=== PATIENT | male | born 1940 | race Caucasian/White ===

== ENCOUNTER 2019-02-08 12:09 | Inpatient (IN) | payer MEDICARE, OTHER ==
[~2019-02-08] VITALS: Ht 175.3 cm; Wt 78.5 kg
--- NOTE | 2019-02-08 12:22 | NUR ---
"RAJ FROM [facility] SENT BY DR PALACIO FOR SUPRAPUBIC CATH CHANGE/REPLACE" PT AAOX4, -SOB, NAD NOTED, PT TO BED 4, VSS, PENDING ER PROVIDER SHANIA
[2019-02-08] MEDS ORDERED: PIPERACILLIN /TAZOBACTAM 3.375 G in IV D5W 50 ML IV ONE (12:30)
[2019-02-08] MEDS ORDERED: IV NS 0.9% 500 ML BAG IV ONE (12:30)
[2019-02-08] MEDS ORDERED: VANCOMYCIN 1 GM in IV D5W 250 ML IV ONE (12:30)
[2019-02-08 12:49] LABS: BASOPHILS # (AUTO) 0.1 /CMM (0.0-0.2); BASOPHILS % (AUTO) 0.7 % (0.0-2.0); EOSINOPHILS % (AUTO) 4.1 % (0.0-6.0); HEMATOCRIT 41 % (39-51); HEMOGLOBIN 14.1 g/dL (13.5-17.5); LYMPHOCYTES # (AUTO) 1.7 /CMM (0.8-4.8); LYMPHOCYTES % (AUTO) 21.8 % (20.0-44.0); MEAN CORPUSCULAR HGB CONC 35 g/dl (31.0-36.0); MEAN CORPUSCULAR VOLUME 94 fL (80-96); MONOCYTES # (AUTO) 0.6 /CMM (0.1-1.30); MONOCYTES % (AUTO) 7.7 % (2.0-12.0); NEUTROPHILS # (AUTO) 5.2 /CMM (1.8-8.9); NEUTROPHILS % (AUTO) 65.7 % (43.0-81.0); PLATELET COUNT (AUTO) 201 /CMM (150-450); WHITE BLOOD COUNT (AUTO) 7.9 K/uL (4.3-11.0)
[2019-02-08 12:57] LABS: CARBON DIOXIDE 32 mmol/L (21-32); CHLORIDE 99 mmol/L (98-107); CREATININE 0.8 mg/dL (0.6-1.3); GLUCOSE 93 mg/dL (74-106); POTASSIUM 4.6 mmol/L (3.5-5.1); SODIUM SERUM 134 mmol/L (136-145); UREA NITROGEN, BLOOD 17 mg/dL (7-18)
[2019-02-08 13:03] LABS: ALANINE AMINOTRANSFERASE 31 U/L (12-78); ALBUMIN 3.5 g/dL (3.4-5.0); ALKALINE PHOSPHATASE 114 U/L (46-116); ASPARTATE AMINOTRANSFERASE 22 U/L (15-37); BILIRUBIN,DIRECT 0.2 mg/dL (0.0-0.2); BILIRUBIN,TOTAL 0.5 mg/dL (0.2-1.0); TOTAL PROTEIN, SERUM 7.8 g/dL (6.4-8.2)
[2019-02-08] MEDS ORDERED: MELA3CAP2 PO (13:25)
[2019-02-08] MEDS ORDERED: ACET-73 PO (13:25)
[2019-02-08] MEDS ORDERED: TRAZ-182 PO (13:25)
[2019-02-08] MEDS ORDERED: GABA600T12 PO (13:25)
[2019-02-08] MEDS ORDERED: CLON0.5T PO (13:25)
[2019-02-08] MEDS ORDERED: TYL2T PO (13:25)
[2019-02-08] MEDS ORDERED: DOCU-141 PO (13:25)
[2019-02-08] MEDS ORDERED: LACT-239 PO (13:25)
[2019-02-08] MEDS ORDERED: SENN-18 PO (13:25)
[2019-02-08] MEDS ORDERED: ASCO500T9 PO (13:25)
[2019-02-08] MEDS ORDERED: LEVO25TA7 PO (13:25)
[2019-02-08] MEDS ORDERED: MULT-661 PO (13:25)
[2019-02-08] MEDS ORDERED: CLON0.1T PO (13:25)
[2019-02-08] MEDS ORDERED: FAMO40TA7 PO (13:25)
[2019-02-08] MEDS ORDERED: POLY15DR31 OP (13:25)
--- NOTE | 2019-02-08 14:51 | NUR ---
REPORT GIVEN TO PAULINE BASSETT FOR MAYKEL PT WILL BE TRANSPORTED TO 3RD FLOOR
[2019-02-08 15:20] VITALS: BP 118/72
--- NOTE | 2019-02-08 15:20 | NUR ---
MS RN ADMITTING NOTES RECEIVED PT ALERT AND ORIENTED X4.VERBALLY RESPONSIVE. DENIES ANY PAIN OR DISTRESS.ON BED REST.ABLE TO MOVE/TURN BUE/BLE WNL IN BED ONLY.RESPIRATIONS NON LABORED IN ROOM AIR.WOUND C/S G/S OF ABDOMINAL INNER WALL SPECIMEN SENT TO LAB.WITH RT LOWER BUTTOCK WOUND,LT HEEL (UNOPEN DRY BLISTER),SACROCOCCYX AND HANSEL BUTTOCK REDNESS,ABD WALL SUPRAPUBIC SITE OPEN WOUND AND RT MOYA SCABS.SEEN BY DR MAYS WITH ADMITTING ORDERS.AWAITING UROLOGY CONSULT FROM DR ANDERSON.CALL LIGHT PLACED WITHIN REACH.
[2019-02-08 16:00] VITALS: BP 118/72
[2019-02-08] MEDS ORDERED: SENNOSIDES 8.6 MG TABLET PO PRN (16:00)
[2019-02-08] MEDS ORDERED: TRAZODONE 50 MG TABLET PO PRN (16:00)
[2019-02-08] MEDS ORDERED: ACETAMINOPHEN 325 MG TABLET PO PRN ×2 (16:00→16:30)
[2019-02-08] MEDS ORDERED: CLONIDINE HCL 0.1 MG TABLET PO PRN (16:00)
[2019-02-08] MEDS ORDERED: FEE PK DOSING 1 MIN EA MC ONE (16:28)
[2019-02-08] MEDS ORDERED: POLYVINYL ALCOHOL/POVIDONE 0.4 ML DROPERETTE EACHEYE PRN (16:30)
[2019-02-08] MEDS ORDERED: MAG HYDROX/AL HYDROX/SIMETH 30 ML UDC PO PRN (16:30)
[2019-02-08] MEDS ORDERED: HYDROCODONE/APAP 5/325MG 1 EACH TABLET PO PRN (16:30)
[2019-02-08] MEDS ORDERED: Z GUARD REMEDY 2 OZ OINT TP PRN (16:30)
[2019-02-08] MEDS ORDERED: MAGNESIUM HYDROXIDE 30 ML UDC PO PRN (16:30)
[2019-02-08] MEDS ORDERED: ONDANSETRON HCL/PF 4 MG/2 ML VIAL IVP PRN (16:30)
[2019-02-08] MEDS ORDERED: ZOLPIDEM TARTRATE 5 MG TABLET PO PRN (16:30)
[2019-02-08] MEDS: DOCUSATE SODIUM 100 MG CAPSULE PO SCH (17:00)
[2019-02-08] MEDS: ZOSYN IVPB 3.375 G in IV D5W 50ml IV SCH ×2 (19:09→23:43)
--- NOTE | 2019-02-08 19:42 | NUR ---
MS RN RECEIVE PT IN BED A/O X 3, RESPIRATIONS EVEN AND UNLABORED, STABLE SAFETY MEASURES IN PLACE. WILL CONTINUE TO MONITOR.
[2019-02-08 20:00] VITALS: BP 114/67
[2019-02-08 20:58] VITALS: BP 114/67
[2019-02-08] MEDS: GABAPENTIN 300 MG CAPSULE PO SCH (21:21)
[2019-02-08] MEDS: clonazePAM 0.5 MG TABLET PO SCH (21:21)
[2019-02-08] MEDS ORDERED: Medication Not On Formulary EA (Melatonin 3 MG) PO SCH (22:00)
--- NOTE | 2019-02-08 23:10 | NUR ---
S/B UROLOGIST INSERTED SUPRAPUBIC CATH STERILE TECHNIQUE FR 20
[2019-02-09] MEDS ORDERED: VANCOMYCIN 0.75 GM in IV D5W 250 ML IV SCH (01:00)
[2019-02-09] MEDS: clonazePAM 0.5 MG TABLET PO SCH ×3 (04:58→21:01)
[2019-02-09] MEDS: ZOSYN IVPB 3.375 G in IV D5W 50ml IV SCH ×3 (05:00→18:11)
--- NOTE | 2019-02-09 06:30 | NUR ---
MS RN ASLEEP AND EASILY AWAKEN. STABLE. NO S/S OF DISTRESS. KEPT CLEAN AND DRY AND COMFORTABLE. NEEDS ATTENDED AND ANTICIPATED. NURSING CARE RENDERED, REPOSITION Q2HR. OFFLOAD HEELS AND ELBOWS AT ALL TIMES. NO C/O OF PAIN. SAFETY MEASURES AT ALL TIMES. ENDORSE TO THE NEXT SHIFT.
[2019-02-09 06:31] LABS: BASOPHILS % (AUTO) 0.3 % (0.0-2.0); EOSINOPHILS % (AUTO) 2.2 % (0.0-6.0); HEMATOCRIT 37 % (39-51); HEMOGLOBIN 12.8 g/dL (13.5-17.5); LYMPHOCYTES # (AUTO) 1.9 /CMM (0.8-4.8); LYMPHOCYTES % (AUTO) 19.7 % (20.0-44.0); MEAN CORPUSCULAR HGB CONC 35 g/dl (31.0-36.0); MEAN CORPUSCULAR VOLUME 93 fL (80-96); MONOCYTES # (AUTO) 0.8 /CMM (0.1-1.30); NEUTROPHILS # (AUTO) 6.8 /CMM (1.8-8.9); NEUTROPHILS % (AUTO) 69.8 % (43.0-81.0); PLATELET COUNT (AUTO) 183 /CMM (150-450); RED BLOOD CELL COUNT(AUTO) 3.93 MIL/uL (4.5-6.0); WHITE BLOOD COUNT (AUTO) 9.8 K/uL (4.3-11.0)
[2019-02-09 07:06] LABS: THYROID STIMULATING HORMONE 2.006 uIU/mL (0.358-3.74)
[2019-02-09 07:17] LABS: CALCIUM, SERUM 8.4 mg/dL (8.5-10.1); CARBON DIOXIDE 26 mmol/L (21-32); CHLORIDE 99 mmol/L (98-107); CREATININE 0.9 mg/dL (0.6-1.3); GLUCOSE 102 mg/dL (74-106); MAGNESIUM 1.9 mg/dL (1.8-2.4); PHOSPHORUS 3.7 mg/dL (2.5-4.9); POTASSIUM 4.1 mmol/L (3.5-5.1); SODIUM SERUM 133 mmol/L (136-145); UREA NITROGEN, BLOOD 14 mg/dL (7-18)
[2019-02-09 08:00] VITALS: BP 108/71
--- NOTE | 2019-02-09 08:00 | NUR ---
m/s janitorial assistant: initial assessment received pt in bed awake, a/ox3-4. s/p suprapubic cath insertion with clear yellow urine output. no c/o pain or any discomfort. instructed to call for assistance. no distress noted. will monitor.
[2019-02-09] MEDS: ASCORBIC ACID 500 MG TABLET PO SCH (08:19)
[2019-02-09] MEDS: FAMOTIDINE (20 MG) 20 MG TABLET PO SCH (08:19)
[2019-02-09] MEDS: MULTIVIT W/MINERALS 1 TAB TABLET PO SCH (08:19)
[2019-02-09] MEDS: DOCUSATE SODIUM 100 MG CAPSULE PO SCH ×2 (08:22→16:20)
[2019-02-09] MEDS: LEVOTHYROXINE SODIUM 25 MCG TABLET PO SCH (08:22)
[2019-02-09] MEDS: ENSURE CLEAR 237 ML LIQUID (MIX BERRY) PO SCH (08:53)
--- NOTE | 2019-02-09 10:00 | NUR ---
WOUND CARE CONSULT:SEEN PATIENT AT BEDSIDE, PATIENT PRESENTS WITH RT AND LT BUTTOCKS WITH REDNESS AND RT BUTTOCK PRESSURE ULCER STAGE 2, RT , LT TOES WITH SCABS WITH REDNESS ,RT HEEL DTI\CLOSED BLISTER, LT ANKLE SCAB ,LOWER ABDOMEN S\P SUPRAPUBIC CATH PLACEMENT, PRESENT ON ADMISSION,RECOMMENDATION MADE FOR SKIN PROTECTION, DISCUSSED WITH NURSING STAFF , IN AGREEMENT WITH PLAN OF CARE CURRENT CORRY SCORE IS 15, FOR S\P SUPRAPUBIC CATH PLACEMENT DIFER TO PRIMARY CARE DOCTOR ,AND AGREE WITH CURRENT TREATMENT, ISOFLEX YORDY BED IN PLACE, TURN REPOSITION , HEELS FLOATED, WILL SEE PRN Addendum: 02/09/19 at 1137 by KATHERINE BOBBY RN Amended: Links added.
--- NOTE | 2019-02-09 12:38 | NUR ---
m/s bull gang worker: notes dr. delaney notified re: blood culture result (gram positive cocci) with new order to repeat blood cultures x2, and id consult. order read back and carried out. pmd will call tony (id) as stated.
[2019-02-09] MEDS: HYDROGEL DRESSING 90 GM TUBE TP SCH (13:57)
--- NOTE | 2019-02-09 14:00 | NUR ---
m/s wire spiral binder: notes resting comfortable in bed. pt wants to go today. awaiting order. case management to make arrangement. pt was evaluated earlier by [facility] personnel. instructed to call for assistance. will continue to monitor.
--- NOTE | 2019-02-09 15:00 | NUR ---
m/s explosive operator: notes dr. delaney notified and informed her that we have a bed at [facility], but wants to keep pt due to positive blood culture result. pt made aware and verbalized understanding.
[2019-02-09] MEDS: VANCOMYCIN 0.75 GM in IV D5W 250 ML IV SCH ×2 (15:05→22:04)
[2019-02-09 15:40] VITALS: BP 128/73
[2019-02-09] MEDS: LACTOBACILLUS RHAMNOSUS GG 1 EACH CAP.SPRINK PO SCH (16:20)
--- NOTE | 2019-02-09 17:00 | NUR ---
m/s cargo vessel stewardess: notes dinner served. hob elevated. call light within reach.
--- NOTE | 2019-02-09 19:15 | NUR ---
m/s antisqueak chalker: notes report given to bernardino (rn) for continuity of care.
--- NOTE | 2019-02-09 19:20 | NUR ---
rn initial notes: received report from valerie vega. pt in bed, awake, a/o x3 on ra respirations even and unlabored. pt has iv access on righ ac g 20, patent and flushing well, on hl. however pt complaining that it's hurting and requesting for new reinsertion. discussed plan of care to pt. pt s/p suprapubic cath reinsertion on 02/[address] bailey, draining to gravity. cath site noted to be red, with minimal drainage. id came to see and prescribed with neomycin ointment, awaiting for pharm to deliver the medication. safety precautions for fall initiated, call light in reach, will continue monitoring pt.
[2019-02-09 20:00] VITALS: BP 134/69
--- NOTE | 2019-02-09 20:15 | NUR ---
rn notes: reinserted new iv access on left fa using g 22 with good blood return noted, transparent dressing applied, with proper labels attached.
[2019-02-09] MEDS: NEOMY SULF/BACITRAC ZN/POLY 15 GM TUBE TP SCH (21:01)
[2019-02-09 22:00] VITALS: BP 119/67
--- NOTE | 2019-02-09 22:00 | NUR ---
rn notes: pt refused to be reposition at this time. education provided to pt.
[2019-02-09] MEDS: GABAPENTIN 300 MG CAPSULE PO SCH (22:02)
--- NOTE | 2019-02-10 | NUR ---
rn notes: pt refused to be reposition at this time. informed pt he's been laying on his back since 0800pm, pt refused, stated he's comfortable on his back, and he will call for help if he wants to be repositioned. education provided to pt regarding pressure ulcer development
--- NOTE | 2019-02-10 02:00 | NUR ---
RN NOTES: OFFERED TO BE REPOSITION BUT PT REFUSED, STATED HE WOULD LIKE TO SLEEP, AND HE WILL CALL WHENEVER FEEL THE NEED TO BE REPOSITION. EDUCATION PROVIDED TO PT RISK FOR WORSENING HIS SACRAL WOUND.
--- NOTE | 2019-02-10 04:00 | NUR ---
RN NOTES: OFFERED TO BE REPOSITION, PT REFUSED STATED HE DOESN'T WANT TO DO IT NOW, OFFERED FOR AM CARE/BED BATH AND WOUND CARE TREATMENT, PT STATED HE DOESN'T WANT ALL THOSE HARD WORK NOW AND WILL JUST DO IT AFTER BREAKFAST. HE ALSO ADDED HE WILL JUST BE MESSY AFTER BREAKFAST. WITNESSED BY WESLEY DESAI.
[2019-02-10] MEDS: VANCOMYCIN 0.75 GM in IV D5W 250 ML IV SCH ×3 (05:05→21:08)
[2019-02-10] MEDS: clonazePAM 0.5 MG TABLET PO SCH ×3 (05:05→20:25)
--- NOTE | 2019-02-10 05:13 | NUR ---
rn notes: offered am care, bed bath oral care and wound care treatment at this time, but pt refused, stated "why worry about it now?i will be all messy by the time i eat breakfast. i will request fo bath after breakfast." as pt verbalized. hector palafox at bed side , witnessed the conversation. offered for at least linen change but pt refused also. education provided to pt regarding importance of good hygiene.
--- NOTE | 2019-02-10 06:49 | NUR ---
rn closing notes: pt in bed, remains a/o x3, on ra respirations even and unlabored. pt continues to refused repositioning, refused bed bath and linen change despite providing education. ble kept offloaded on pillows. iv access remains patent and flushing well, on hl. no s/s of iv infiltration noted. suprapubic catheter remains in placed, bag emptied by bee raiser, cath site remains with erythema, ointment applied as ordered by ID. vs remains stable, needs attended. . safety precautions for fall remains engaged, call light in reach, will endorse to day rn for continuity of care.
[2019-02-10 06:57] LABS: BASOPHILS % (AUTO) 0.5 % (0.0-2.0); EOSINOPHILS % (AUTO) 6.2 % (0.0-6.0); HEMATOCRIT 36 % (39-51); HEMOGLOBIN 12.4 g/dL (13.5-17.5); LYMPHOCYTES # (AUTO) 1.6 /CMM (0.8-4.8); LYMPHOCYTES % (AUTO) 23.9 % (20.0-44.0); MEAN CORPUSCULAR HGB CONC 35 g/dl (31.0-36.0); MEAN CORPUSCULAR VOLUME 93 fL (80-96); MONOCYTES # (AUTO) 0.6 /CMM (0.1-1.30); MONOCYTES % (AUTO) 8.9 % (2.0-12.0); NEUTROPHILS # (AUTO) 4.1 /CMM (1.8-8.9); NEUTROPHILS % (AUTO) 60.5 % (43.0-81.0); PLATELET COUNT (AUTO) 168 /CMM (150-450); RED BLOOD CELL COUNT(AUTO) 3.83 MIL/uL (4.5-6.0); WHITE BLOOD COUNT (AUTO) 6.8 K/uL (4.3-11.0)
[2019-02-10 07:06] LABS: CALCIUM, SERUM 8.3 mg/dL (8.5-10.1); CARBON DIOXIDE 27 mmol/L (21-32); CHLORIDE 100 mmol/L (98-107); CREATININE 0.8 mg/dL (0.6-1.3); GLUCOSE 137 mg/dL (74-106); PHOSPHORUS 3.4 mg/dL (2.5-4.9); POTASSIUM 3.9 mmol/L (3.5-5.1); SODIUM SERUM 134 mmol/L (136-145); UREA NITROGEN, BLOOD 12 mg/dL (7-18)
--- NOTE | 2019-02-10 07:45 | NUR ---
MS RN OPENING NOTE PATIENT IN BED RESTING COMFORTABLY. PATIENT IN NO ACUTE DISTRESS. PATIENT BREATHING IS EVEN AND UNLABORED. NO SOB NOTED. PATIENT SUPRAPUBIC CATHETER IN PLACE AND INTACT. SAFETY PRECAUTIONS IN PLACE. PATIENT VERBALIZES NEEDS AND CONCERNS. NEEDS AND CONCERNS ADDRESSED. SAFETY PRECAUTIONS IN PLACE. PATIENT BED IS LOCKED AND IN LOWEST POSITION. CALL LIGHT WITHIN REACH. WILL CONTINUE TO MONITOR.
[2019-02-10 08:00] VITALS: BP 116/73
[2019-02-10] MEDS: ENSURE CLEAR 237 ML LIQUID (MIX BERRY) PO SCH (08:49)
[2019-02-10] MEDS: MULTIVIT W/MINERALS 1 TAB TABLET PO SCH (08:50)
[2019-02-10] MEDS: ASCORBIC ACID 500 MG TABLET PO SCH (08:50)
[2019-02-10] MEDS: LACTOBACILLUS RHAMNOSUS GG 1 EACH CAP.SPRINK PO SCH ×2 (08:50→17:10)
[2019-02-10] MEDS: FAMOTIDINE (20 MG) 20 MG TABLET PO SCH (08:50)
[2019-02-10] MEDS: LEVOTHYROXINE SODIUM 25 MCG TABLET PO SCH ×2 (08:50→08:54)
[2019-02-10] MEDS: NEOMY SULF/BACITRAC ZN/POLY 15 GM TUBE TP SCH ×3 (08:51→17:11)
[2019-02-10] MEDS: HYDROGEL DRESSING 90 GM TUBE TP SCH (08:51)
[2019-02-10] MEDS: DOCUSATE SODIUM 100 MG CAPSULE PO SCH ×2 (08:51→17:00)
[2019-02-10 16:00] VITALS: BP 106/59
--- NOTE | 2019-02-10 18:48 | NUR ---
MS RN NOTE PATIENT RESTING COMFORTABLY IN BED. PATIENT IN NO ACUTE DISTRESS. NO SOB NOTED. PATIENT BREATHING IS EVEN AND UNLABORED. PATIENT STATES NO PAIN AT THIS TIME. PATIENT ALLOWED FOR WOUND CARE TO BE PROVIDED. PROVIDED WOUND CARE ORDERED. PATIENT KEPT CLEAN AND DRY THROUGHOUT SHIFT. PATIENT OFFLOADED EXTREMITIES ON PILLOW MUCH PATIENT ALLOWED. AT TIMES REFUSED TO HAVE EXTREMITIES OFFLOADED WITH PILLOWS AND REFUSED AT TIMES TO BE REPOSITIONED. PATIENT STATES " I AM COMFORTABLE THE WAY IM RESTING NOW, NO NEED TO REPOSITION ME RIGHT NOW MAYBE LATER", WHEN REFUSING TO BE TURNED. SUPRAPUBIC CATHETER IN PLACE AND PATENT. PATIENT BED IS LOCKED AND IN LOWEST POSITION. CALL LIGHT WITHIN REACH. WILL ENDORSE CARE TO PM SHIFT FOR MAYKEL. Addendum: 02/10/19 at 1923 by DARRELL ORELLANA RN MS RN CLOSING NOTE PATIENT RESTING COMFORTABLY IN BED. PATIENT IN NO ACUTE DISTRESS. NO SOB NOTED. PATIENT BREATHING IS EVEN AND UNLABORED. PATIENT STATES NO PAIN AT THIS TIME. PATIENT ALLOWED FOR WOUND CARE TO BE PROVIDED. PROVIDED WOUND CARE ORDERED. PATIENT KEPT CLEAN AND DRY THROUGHOUT SHIFT. PATIENT OFFLOADED EXTREMITIES ON PILLOW MUCH PATIENT ALLOWED. AT TIMES REFUSED TO HAVE EXTREMITIES OFFLOADED WITH PILLOWS AND REFUSED AT TIMES TO BE REPOSITIONED. PATIENT STATES " I AM COMFORTABLE THE WAY IM RESTING NOW, NO NEED TO REPOSITION ME RIGHT NOW MAYBE LATER", WHEN REFUSING TO BE TURNED. SUPRAPUBIC CATHETER IN PLACE AND PATENT. PATIENT BED IS LOCKED AND IN LOWEST POSITION. CALL LIGHT WITHIN REACH. WILL ENDORSE CARE TO PM SHIFT FOR MAYKEL.
--- NOTE | 2019-02-10 19:15 | NUR ---
RN INITIAL NOTES: RECEIVED REPORT FROM DARRELL BASSETT. PT IN BED, AWAKE, WATCHING TV. DENIES ANY PAIN OR DISCOMFORT AT THIS TIME. RESPIRATIONS EVEN AND UNLABORED. IV ACCESS PATENT AND FLUSHING WELL, ON HL. PT HAD WOUND CARE TX, BED BATH AND LINEN CHANGE THIS AFTERNOON ACCDG TO REPORT FROM DAY RN. DISCUSSED PLAN OF CARE TO PT. BLE OFFLOADED ON PILLOWS. SAFETY PRECAUTIONS FOR FALL INITIATED, CALL LIGHT IN REACH, WILL CONTINUE MONITORING PT.
[2019-02-10 20:00] VITALS: BP 127/72
--- NOTE | 2019-02-10 20:30 | NUR ---
RN NOTES: PT AGREE FOR BED BATH AND WOUND CARE TREATMENT AT THIS TIME.
[2019-02-10] MEDS: GABAPENTIN 300 MG CAPSULE PO SCH (21:08)
[2019-02-10 22:00] VITALS: BP 108/77
--- NOTE | 2019-02-11 02:09 | NUR ---
rn notes: pt refused to be reposition at this time, education provided to pt.
[2019-02-11] MEDS: clonazePAM 0.5 MG TABLET PO SCH ×2 (05:09→13:42)
--- NOTE | 2019-02-11 05:09 | NUR ---
rn notes: lab came to draw for real maynard
--- NOTE | 2019-02-11 06:09 | NUR ---
rn notes: unable to admin schedule vanco iv, still waiting for vanco trough result
[2019-02-11 06:10] LABS: BASOPHILS % (AUTO) 0.7 % (0.0-2.0); EOSINOPHILS % (AUTO) 4.7 % (0.0-6.0); HEMATOCRIT 38 % (39-51); HEMOGLOBIN 13.2 g/dL (13.5-17.5); LYMPHOCYTES # (AUTO) 1.6 /CMM (0.8-4.8); LYMPHOCYTES % (AUTO) 22.4 % (20.0-44.0); MEAN CORPUSCULAR HGB CONC 34 g/dl (31.0-36.0); MEAN CORPUSCULAR VOLUME 94 fL (80-96); MONOCYTES # (AUTO) 0.6 /CMM (0.1-1.30); MONOCYTES % (AUTO) 8.2 % (2.0-12.0); NEUTROPHILS # (AUTO) 4.6 /CMM (1.8-8.9); PLATELET COUNT (AUTO) 183 /CMM (150-450); RED BLOOD CELL COUNT(AUTO) 4.09 MIL/uL (4.5-6.0); WHITE BLOOD COUNT (AUTO) 7.2 K/uL (4.3-11.0)
--- NOTE | 2019-02-11 06:25 | NUR ---
rn notes: still waiting for van co trough result
[2019-02-11 06:33] LABS: CALCIUM, SERUM 8.6 mg/dL (8.5-10.1); CARBON DIOXIDE 25 mmol/L (21-32); CHLORIDE 98 mmol/L (98-107); CREATININE 0.8 mg/dL (0.6-1.3); GLUCOSE 92 mg/dL (74-106); MAGNESIUM 1.9 mg/dL (1.8-2.4); PHOSPHORUS 3.6 mg/dL (2.5-4.9); POTASSIUM 4.1 mmol/L (3.5-5.1); SODIUM SERUM 132 mmol/L (136-145); UREA NITROGEN, BLOOD 12 mg/dL (7-18)
[2019-02-11] MEDS: VANCOMYCIN 0.75 GM in IV D5W 250 ML IV SCH (06:40)
--- NOTE | 2019-02-11 06:43 | NUR ---
RN CLOSING NOTES: PT IN BED, AWAKE, DENIES ANY PAIN OR DISCOMFORT AT THIS TIME. IV ACCESS REMAINS PATENT AND FLUSHING WELL, ON HL. SUPRAPUBIC CATHETER REMAINS IN PLACED, DRAINING TO GRAVITY. BLE KEPT OFFLOADED ON PILLOWS. AWAITING FINAL RESULT OF BLOOD CULTURES. VS REMAINS STABLE, NEEDS ATTENDED. SAFETY PRECAUTIONS FOR FALL REMAINS ENGAGED, CALL LIGHT IN REACH, WILL ENDORSE TO DAY RN FOR CONTINUITY OF CARE.
--- NOTE | 2019-02-11 07:34 | NUR ---
MS RN OPENING NOTE RECEIVED PATIENT IN BED SLEEPING COMFORTABLY. PATIENT IN NO ACUTE DISTRESS. NO SOB NOTED. PATIENT BREATHING IS EVEN AND UNLABORED. PATIENT SUPRAPUBIC CATHETER IN PLACE AND INTACT. PATIENT IV INTACT. PATIENT BED IS LOCKED AND IN LOWEST POSITION. CALL LIGHT WITHIN REACH. WILL CONTINUE TO MONITOR.
[2019-02-11 08:00] VITALS: BP 114/72
[2019-02-11] MEDS: DOCUSATE SODIUM 100 MG CAPSULE PO SCH (09:00)
[2019-02-11] MEDS: LACTOBACILLUS RHAMNOSUS GG 1 EACH CAP.SPRINK PO SCH (09:18)
[2019-02-11] MEDS: ENSURE CLEAR 237 ML LIQUID (MIX BERRY) PO SCH (09:18)
[2019-02-11] MEDS: FAMOTIDINE (20 MG) 20 MG TABLET PO SCH (09:19)
[2019-02-11] MEDS: ASCORBIC ACID 500 MG TABLET PO SCH (09:19)
[2019-02-11] MEDS: MULTIVIT W/MINERALS 1 TAB TABLET PO SCH (09:19)
[2019-02-11] MEDS: NEOMY SULF/BACITRAC ZN/POLY 15 GM TUBE TP SCH ×2 (09:20→13:44)
[2019-02-11] MEDS: HYDROGEL DRESSING 90 GM TUBE TP SCH (09:20)
[2019-02-11] MEDS ORDERED: DOXY100C2 PO (13:42)
[2019-02-11 16:00] VITALS: BP 124/75
--- NOTE | 2019-02-11 17:00 | NUR ---
MS TUMBLER DYEING MACHINE OPERATOR NOTE PATIENT MEDICALLY STABLE AND READY FOR DISCHARGE. PATIENT IN NO ACUTE DISTRESS. NO SOB NOTED. PATIENT BREATHING IS EVEN AND UNLABORED. PATIENT IS BREATHING ON ROOM AIR SATURATING >95% SPO2. PATIENT VITAL SIGNS WNL. PATIENT WAS KEPT CLEAN AND DRY DURING MY SHIFT. PATIENT ALLOWED FOR WOUND CARE TO BE PROVIDED. PATIENT EXTREMITIES WERE OFFLOADED ON PILLOWS AND REPOSITIONED MUCH PATIENT WOULD ALLOW. PATIENT IV REMOVED, NO REDNESS AFTER REMOVAL. PATIENT ID BAND REMOVED. PATIENT SKIN WAS ASSESSED. NO NEW SKIN BREAKDOWN NOTED. PATIENT BELONGINGS LIST SIGNED AND IN CHART. PATIENT GOING BACK TO [facility]. REPORT GIVEN TO RADHA BASSETT. DC INSTRUCTIONS PROVIDED. PATIENT VERBALIZED UNDERSTANDING OF DC INSTRUCTIONS. ALL NURSING NEEDS MET. PATIENT LEFT BY JERRICA, THROUGH AMBULANCE BACK TO [facility]. AWARE OF DISCHARGE. Addendum: 02/11/19 at 1754 by DARRELL ORELLANA RN MS TUMBLER DYEING MACHINE OPERATOR NOTE PATIENT MEDICALLY STABLE AND READY FOR DISCHARGE. PATIENT IN NO ACUTE DISTRESS. NO SOB NOTED. PATIENT BREATHING IS EVEN AND UNLABORED. PATIENT IS BREATHING ON ROOM AIR SATURATING >95% SPO2. PATIENT VITAL SIGNS WNL. PATIENT WAS KEPT CLEAN AND DRY DURING MY SHIFT. PATIENT ALLOWED FOR WOUND CARE TO BE PROVIDED. PATIENT EXTREMITIES WERE OFFLOADED ON PILLOWS AND REPOSITIONED MUCH PATIENT WOULD ALLOW. PATIENT IV REMOVED, NO REDNESS AFTER REMOVAL. PATIENT ID BAND REMOVED. PATIENT SKIN WAS ASSESSED. NO NEW SKIN BREAKDOWN NOTED. SUPRAPUBIC CATHETER INTACT AND PATENT. PATIENT BELONGINGS LIST SIGNED AND IN CHART. PATIENT GOING BACK TO [facility]. REPORT GIVEN TO RADHA BASSETT. DC INSTRUCTIONS PROVIDED. PATIENT VERBALIZED UNDERSTANDING OF DC INSTRUCTIONS. ALL NURSING NEEDS MET. PATIENT LEFT BY JERRICA, THROUGH AMBULANCE BACK TO [facility]. AWARE OF DISCHARGE.
[2019-02-11] MEDS ORDERED: VANCOMYCIN 0.75 GM in IV D5W 250 ML IV SCH (18:00)
== END 2019-02-11 17:00 | DRG 699 ==
LOC: ER 12:13 → MED 14:56
PROVIDERS: ADMIT Student in an Organized Health Care Education/Training Program; ATTEND Student in an Organized Health Care Education/Training Program
DX: T83.518A Infection and inflammatory reaction due to other urinary catheter, initial encounter (principal); L03.319 Cellulitis of trunk, unspecified; E87.1 Hypo-osmolality and hyponatremia; L97.429 Non-pressure chronic ulcer of left heel and midfoot with unspecified severity; L97.419 Non-pressure chronic ulcer of right heel and midfoot with unspecified severity; R78.81 Bacteremia; L03.311 Cellulitis of abdominal wall; Y84.6 Urinary catheterization as the cause of abnormal reaction of the patient, or of later complication, without mention of misadventure at the time of the procedure; Y92.129 Unspecified place in nursing home as the place of occurrence of the external cause; D69.6 Thrombocytopenia, unspecified; K21.9 Gastro-esophageal reflux disease without esophagitis; N40.1 Benign prostatic hyperplasia with lower urinary tract symptoms; Z93.59 Other cystostomy status; I10 Essential (primary) hypertension; E03.9 Hypothyroidism, unspecified; N40.0 Benign prostatic hyperplasia without lower urinary tract symptoms; B96.89 Other specified bacterial agents as the cause of diseases classified elsewhere; R33.9 Retention of urine, unspecified
CPT/HCPCS: 36415; 71045-TC; 80048-TC; 80076-TC; 80202-TC; 83605-TC; 83735-TC; 84100-TC; 84443-TC; 85025-TC; 87040-TC; 87070-TC; 87081-TC; 97112-TC; 97530-TC; A6248; G0378; J2543; J3370; J7040; J7050; J7060